=== PATIENT | female | born 1975 | race Caucasian/White ===

== ENCOUNTER 2018-12-18 12:39 | Observation (INO) ==
--- NOTE | 2018-12-18 13:27 | Emergency Department Note ---
Disposition Clinical Impression: Appendicolith Disposition: Admitted As Inpatient Time of Disposition: 15:36 Abdominal Pain HPI - General Chief Complaint: ED Abdominal Pain Stated Complaint: Lower abd pain Time Seen by Provider: 12/18/18 12:45 Source: patient Nursing Notes Reviewed: Yes Vital Signs Reviewed: Yes - History of Present Illness HPI Narrative: Patient is a 43-year-old female with past medical history of tubal ligation, C- section, hypertension, arthritis, GERD presents with 3 weeks of right lower quadrant pain. Patient states this pain is constant 10 out of 10. Nothing makes it better. Movement and touch herniation and defication make it worse. Patient is also been intermittently vomiting for the past 3 weeks. Nonbloody. Patient has not had diarrhea. She says she has felt a little bit lightheaded. Has not lost consciousness. Pain Scale: 10 - Related Data Home Medications Medication Instructions Recorded Confirmed Albuterol Sulfate [Proair HFA] 2 puff IH Q4HR PRN 07/27/15 05/16/18 Aripiprazole [Abilify] 40 mg PO DAILY 07/27/15 05/16/18 Citalopram [CeleXA] 40 mg PO DAILY 07/27/15 05/16/18 Ranitidine HCl [Zantac] 150 mg PO DAILY 07/27/15 05/16/18 Tizanidine [Zanaflex] 4 mg PO BID 07/27/15 05/16/18 Topiramate [Topamax] 100 mg PO TID 07/27/15 05/16/18 lamoTRIgine [Lamictal] 100 mg PO BID 07/27/15 05/16/18 traMADol [Ultram] 50 mg PO TID 07/27/15 05/16/18 Hydrochlorothiazide [Microzide] 12.5 mg PO DAILY 01/21/17 05/16/18 Losartan [Cozaar] 12.5 mg PO DAILY 01/21/17 05/16/18 Previous Rx's Medication Instructions Recorded Cyclobenzaprine [Flexeril] 10 mg PO TID #21 tablet 03/18/18 Allergies Allergy/AdvReac Type Severity Reaction Status Date / Time eletriptan [From Relpax] Allergy Swelling Verified 05/16/18 22:47 of Lip/Tongue/Throat Latex, Natural Rubber Allergy Swelling Verified 05/16/18 22:47 of Lip/Tongue/Throat nalbuphine [From Nubain] Allergy Swelling Verified 05/16/18 22:47 of Lip/Tongue/Throat Penicillins [PCN] Allergy Swelling Verified 05/16/18 22:47 of Lip/Tongue/Throat aspirin AdvReac See Verified 05/16/18 22:47 Comments All systems ED: reviewed and negative except as stated. 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 Psychiatric history: Reports: anxiety, bipolar, depression, other - Social History Smoking status: Current every day smoker Alcohol use: Reports: none Drug use: Reports: none Physical Exam - General Limitations: no limitations General appearance: alert, in no apparent distress - Head Head exam: atraumatic, normocephalic, normal inspection - Eye Eye exam: Present: normal appearance, PERRL, EOMI - ENT ENT exam: normal exam, normal oropharynx, mucous membranes moist - Neck Neck exam: Present: normal inspection, full ROM, trachea midline - Chest Chest inspection: Present: normal inspection, symmetric chest wall rise - Respiratory Respiratory exam: Present: normal lung sounds bilaterally - Cardiovascular Cardiovascular exam: Present: regular rate, normal rhythm, normal heart sounds - Abdominal Exam Abdominal exam: Present: soft, tenderness, guarding, normal bowel sounds. Absent: distention, rebound, rigidity Abdominal tenderness: Present: RLQ, severe - Extremities Exam Extremities exam: Present: normal inspection, full ROM. Absent: tenderness, pedal edema - Neurological Exam Neurological exam: Present: alert, oriented X3 - Psychiatric Psychiatric exam: Present: normal affect, normal mood - Skin Skin exam: Present: warm, dry, intact, normal color Course Vital Signs Temperature 98.1 F 12/18/18 12:39 Pulse Rate 86 12/18/18 12:39 Respiratory Rate 20 12/18/18 12:39 Blood Pressure 155/93 12/18/18 12:39 O2 Sat by Pulse Oximetry 100 12/18/18 12:39 Temperature 98.1 F 12/18/18 12:39 Pulse Rate 62 12/18/18 13:50 Respiratory Rate 16 12/18/18 13:50 Blood Pressure 131/94 12/18/18 13:50 O2 Sat by Pulse Oximetry 99 12/18/18 13:50 Oxygen Delivery Oxygen Delivery Room Air Abdominal Pain - MDM Narrative Medical decision making narrative: Patient has significant right lower quadrant tenderness. Labs and CT abdomen and pelvis was ordered. Appendicitis concern possibly ovarian pathology. Toradol slightly helped the pain. CT found appendicoliths but no acute inflammation. Dr. Gregory in general surgery was called. He will see the patient. Dr. Gregory to perform a diagnostic laparotomy - Lab Data Result diagrams: 12/18/18 13:20 12/18/18 13:20 Lab Results 12/18/18 12/18/18 12/18/18 Range/Units 13:20 13:20 13:27 WBC 6.8 (4.3-11.1) K/mcL RBC 3.99 (3.82-4.97) M/mcL Hgb 12.4 (11.5-15.4) g/dL Hct 36.1 (35.3-44.9) % MCV 90.5 (83.0-100.0) fL MCH 31.1 (28.0-33.3) pg MCHC 34.3 (31.6-35.5) g/dL RDW 12.1 (11.5-14.5) % Plt Count 193 (140-400) K/mcL MPV 11.1 (9.4-12.4) fL Immature Gran % 0.1 (0-4) % Seg Neutrophils % 58.3 % Lymphocytes % 32.6 % Monocytes % 7.2 % Eosinophils % 1.2 % Basophils % 0.6 % Neutrophils # 4.0 (1.6-8.9) K/mcL Lymphocytes # 2.2 (0.6-4.6) K/mcL Monocytes # 0.5 (0.0-1.3) K/mcL Eosinophils # 0.1 (0.0-0.6) K/mcL Basophils # 0.0 (0.0-0.2) K/mcL Sodium 135 L (136-145) mEq/L Potassium 3.4 L (3.5-5.1) mEq/L Chloride 101 (98-107) mEq/L Carbon Dioxide 26 (23-29) mEq/L BUN 7 (6-20) mg/dL Creatinine 0.57 L (0.60-1.20) mg/dL Est GFR ( Amer) > 60 (> 60) Est GFR (Non-Af Amer) > 60 (> 60) BUN/Creatinine Ratio 12 (6-26) Glucose 94 (70-105) mg/dL Calculated Osmolality 278 L (280-300) Calcium 9.6 (8.6-10.3) mg/dL Serum , Qual Negative (Negative)
[2018-12-18] MEDS ORDERED: Ketorolac 30 MG/ML VIAL IM ONE (13:49)
--- NOTE | 2018-12-18 13:50 | Emergency Department Note ---
Disposition Clinical Impression: Appendicolith Disposition: Admitted As Inpatient General Adult HPI - General Chief complaint: ED Abdominal Pain Stated complaint: Lower abd pain Time Seen by Provider: 12/18/18 12:45 Source: patient Limitations: no limitations - History of Present Illness Pain Scale: 10 - Related Data Home Medications Medication Instructions Recorded Confirmed Albuterol Sulfate [Proair HFA] 2 puff IH Q4HR PRN 07/27/15 05/16/18 Aripiprazole [Abilify] 40 mg PO DAILY 07/27/15 05/16/18 Citalopram [CeleXA] 40 mg PO DAILY 07/27/15 05/16/18 Ranitidine HCl [Zantac] 150 mg PO DAILY 07/27/15 05/16/18 Tizanidine [Zanaflex] 4 mg PO BID 07/27/15 05/16/18 Topiramate [Topamax] 100 mg PO TID 07/27/15 05/16/18 lamoTRIgine [Lamictal] 100 mg PO BID 07/27/15 05/16/18 traMADol [Ultram] 50 mg PO TID 07/27/15 05/16/18 Hydrochlorothiazide [Microzide] 12.5 mg PO DAILY 01/21/17 05/16/18 Losartan [Cozaar] 12.5 mg PO DAILY 01/21/17 05/16/18 Previous Rx's Medication Instructions Recorded Cyclobenzaprine [Flexeril] 10 mg PO TID #21 tablet 03/18/18 Allergies Allergy/AdvReac Type Severity Reaction Status Date / Time eletriptan [From Relpax] Allergy Swelling Verified 05/16/18 22:47 of Lip/Tongue/Throat Latex, Natural Rubber Allergy Swelling Verified 05/16/18 22:47 of Lip/Tongue/Throat nalbuphine [From Nubain] Allergy Swelling Verified 05/16/18 22:47 of Lip/Tongue/Throat Penicillins [PCN] Allergy Swelling Verified 05/16/18 22:47 of Lip/Tongue/Throat aspirin AdvReac See Verified 05/16/18 22:47 Comments Constitutional: Denies: fever Eyes: Denies: vision change ENT ED: Denies: congestion Cardiovascular: Denies: chest pain Respiratory: Reports: dyspnea Gastrointestinal: Reports: as per HPI Genitourinary: Reports: as per HPI Musculoskeletal: Denies: myalgia Integumentary: Denies: rash Neurological: Reports: headache Endocrine: Reports: fatigue Past Medical History - Past Medical History Medical history: Reports: arthritis, asthma, GERD, hyperlipidemia, hypertension, migraine, other Surgical history: Reports: , orthopedic, other (Carpal tunnel) Psychiatric history: Reports: anxiety, bipolar, depression, other 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 - Social History Smoking Status: Current every day smoker Smokeless Tobacco Status: No Alcohol use: Reports: none Drug use: Reports: none Physical Exam - General Limitations: no limitations General appearance: alert, in no apparent distress Course Vital Signs Temperature 98.1 F 12/18/18 12:39 Pulse Rate 86 12/18/18 12:39 Respiratory Rate 20 12/18/18 12:39 Blood Pressure 155/93 12/18/18 12:39 O2 Sat by Pulse Oximetry 100 12/18/18 12:39 Temperature 98.1 F 12/18/18 12:39 Pulse Rate 62 12/18/18 13:50 Respiratory Rate 16 12/18/18 13:50 Blood Pressure 131/94 12/18/18 13:50 O2 Sat by Pulse Oximetry 99 12/18/18 13:50 Oxygen Delivery Oxygen Delivery Room Air Medical Decision Making - Lab Data Result diagrams: 12/18/18 13:20 12/18/18 13:20 Lab Results 12/18/18 12/18/18 12/18/18 Range/Units 13:20 13:20 13:27 WBC 6.8 (4.3-11.1) K/mcL RBC 3.99 (3.82-4.97) M/mcL Hgb 12.4 (11.5-15.4) g/dL Hct 36.1 (35.3-44.9) % MCV 90.5 (83.0-100.0) fL MCH 31.1 (28.0-33.3) pg MCHC 34.3 (31.6-35.5) g/dL RDW 12.1 (11.5-14.5) % Plt Count 193 (140-400) K/mcL MPV 11.1 (9.4-12.4) fL Immature Gran % 0.1 (0-4) % Seg Neutrophils % 58.3 % Lymphocytes % 32.6 % Monocytes % 7.2 % Eosinophils % 1.2 % Basophils % 0.6 % Neutrophils # 4.0 (1.6-8.9) K/mcL Lymphocytes # 2.2 (0.6-4.6) K/mcL Monocytes # 0.5 (0.0-1.3) K/mcL Eosinophils # 0.1 (0.0-0.6) K/mcL Basophils # 0.0 (0.0-0.2) K/mcL Sodium 135 L (136-145) mEq/L Potassium 3.4 L (3.5-5.1) mEq/L Chloride 101 (98-107) mEq/L Carbon Dioxide 26 (23-29) mEq/L BUN 7 (6-20) mg/dL Creatinine 0.57 L (0.60-1.20) mg/dL Est GFR ( Amer) > 60 (> 60) Est GFR (Non-Af Amer) > 60 (> 60) BUN/Creatinine Ratio 12 (6-26) Glucose 94 (70-105) mg/dL Calculated Osmolality 278 L (280-300) Calcium 9.6 (8.6-10.3) mg/dL Serum , Qual Negative (Negative) Attestation Statement - Attestation Attestation: I examined this patient and my medical decision-making was reviewed with the Resident Physician. I agree with the documented findings, disposition and treatment plan as described except to the extent set forth below. Patient presents to the ED with a chief complaint of abdominal pain. Right- sided. Patient states that he is from her hip down to her pubic bone. Denies vomiting or diarrhea. On examination she has tenderness over the area. Guarding. Plan. Labs and CT scan. CT scan shows an appendicolith. Patient is having right lower quadrant te nderness. We did call for surgical consult. Dr. Murrieta evaluated the patient at the bedside. Patient will go to the OR for exploratory laparotomy. Abdomen/Pelvis CT 12/18/18 13:20 IMPRESSION: 1. The appendix is not appear inflamed, however 2 small appendicoliths are noted which can predispose to the development of acute appendicitis. 2. No CT evidence of an acute intra-abdominal or intrapelvic process. D/ / Grant Espinal / Grant Espinal Interpreting Provider: Grant Espinal
[2018-12-18 14:02] LABS: Basophils % 0.6 %; Eosinophils # 0.1 K/mcL (0.0-0.6); Eosinophils % 1.2 %; Hematocrit 36.1 % (35.3-44.9); Hemoglobin 12.4 g/dL (11.5-15.4); Immature Granulocytes % 0.1 % (0-4); Lymphocytes # 2.2 K/mcL (0.6-4.6); Lymphocytes % 32.6 %; Mean Corpuscular HGB Conc 34.3 g/dL (31.6-35.5); Mean Corpuscular Hemoglobin 31.1 pg (28.0-33.3); Mean Corpuscular Volume 90.5 fL (83.0-100.0); Mean Platelet Volume 11.1 fL (9.4-12.4); Monocytes # 0.5 K/mcL (0.0-1.3); Monocytes % 7.2 %; Platelet Count 193 K/mcL (140-400); Red Blood Count 3.99 M/mcL (3.82-4.97); Red Cell Distribution Width 12.1 % (11.5-14.5); Segmented Neutrophils % 58.3 %
[2018-12-18 14:30] LABS: BUN/Creatinine Ratio 12 (6-26); Blood Urea Nitrogen 7 mg/dL (6-20); Calcium 9.6 mg/dL (8.6-10.3); Carbon Dioxide 26 mEq/L (23-29); Chloride 101 mEq/L (98-107); Glucose 94 mg/dL (70-105); Osmolality,Calculated 278 (280-300); Potassium 3.4 mEq/L (3.5-5.1); Sodium 135 mEq/L (136-145); eGFR For Non-African Americans > 60 (> 60)
--- NOTE | 2018-12-18 15:51 | General Surg History&Physical ---
Date of Encounter: 12/18/18 Time of Encounter: 15:47 Assessment and Plan (1) Right lower quadrant abdominal pain Current Visit: Yes Status: Acute The assessment and plan as outlined above was discussed with the patient and/or family members who expressed understanding and agreement. All questions were answered. 43F with 3 week history of RLQ pain, CT findings of appendicoliths; discussed with patient that I do not have a definitive diagnosis, but with her pain being present for so long, I do not think it will dissipate on its own. I recommended a diagnostic laparoscopy with appendectomy even though there is a chance that i may not find a definitive reason for her pain. The patient expressed understanding and wished to proceed. NPO IVF one dose of ABX OR today History of Present Illness Chief complaint: right lower quadrant abdominal pain HPI: Ms. Castro is a 43 year old female h/o narcotic drug abuse currently on suboxone, HTN, 6 prior sections and tubal ligation (bilateral) presents with 3 week history of RLQ, worsened over the last week with associated nausea and PO intolerance. The patient is having normal bowel function. The is localized to RLQ with radiation to her pubic region. No associated fevers, chills, chest pain, nor shortness of breath. When talking to the patient she states that the patient is intermittent in nature, but as of late, makes it so she cannot stand up straight because the pain is so great. Her test is negative. A CT scan was obtained, which was reviewed by me, which demonstrates no abnormality, but does show appendicoliths. I suspect that even though there are no signs of inflammation, her pain may be from that. Past Med Surg Social Fam HX - Past Medical History Medical history: arthritis, asthma, GERD, hyperlipidemia, hypertension, migr alisha, other Additional medical history: RA Psychiatric history: anxiety, bipolar, depression, other - Past Surgical History Surgical History: , orthopedic, other (Carpal tunnel) Additional surgical history: CARPAL TUNEL RELEASE, TUBAL LIGATION. D&C, right knee, tubes in ear - Social History Smoking Status: Current every day smoker Smokeless Tobacco Status: No Alcohol use: none Drug use: none - Additional Family History Additional family history: non contributory Medications and Allergies Albuterol Sulfate [Proair HFA] 2 puff IH Q4HR PRN 07/27/15 [History] Aripiprazole [Abilify] 40 mg PO DAILY 07/27/15 [History] Citalopram [CeleXA] 40 mg PO DAILY 07/27/15 [History] Ranitidine HCl [Zantac] 150 mg PO DAILY 07/27/15 [History] Tizanidine [Zanaflex] 4 mg PO BID 07/27/15 [History] Topiramate [Topamax] 100 mg PO TID 07/27/15 [History] lamoTRIgine [Lamictal] 100 mg PO BID 07/27/15 [History] traMADol [Ultram] 50 mg PO TID 07/27/15 [History] Hydrochlorothiazide [Microzide] 12.5 mg PO DAILY 01/21/17 [History] Losartan [Cozaar] 12.5 mg PO DAILY 01/21/17 [History] Cyclobenzaprine [Flexeril] 10 mg PO TID #21 tablet 03/18/18 [Rx] Allergy/AdvReac Type Severity Reaction Status Date / Time eletriptan [From Relpax] Allergy Swelling Verified 05/16/18 22:47 of Lip/Tongue/Throat Latex, Natural Rubber Allergy Swelling Verified 05/16/18 22:47 of Lip/Tongue/Throat nalbuphine [From Nubain] Allergy Swelling Verified 05/16/18 22:47 of Lip/Tongue/Throat Penicillins [PCN] Allergy Swelling Verified 05/16/18 22:47 of Lip/Tongue/Throat aspirin AdvReac See Verified 05/16/18 22:47 Comments Review of Systems All systems PM: 12 point ROS negative besides HPI findings General Surgery Exam Initial Vital Signs Temp Pulse Resp BP Pulse Ox 98.1 F 86 20 155/93 100 12/18/18 12:39 12/18/18 12:39 12/18/18 12:39 12/18/18 12:39 12/18/18 12:39 - General physical appearance no distress - Eyes normal ocular movement - ENT normocephalic - Neck trachea midline, no lymphadectomy - Respiratory normal expansion, normal respiratory effort - Cardiovascular Cardiovascular exam: Present: RRR - Abdomen Abdomen general surgery: Present: soft, tender Abdominal Tenderness: Present: RLQ - Integumentary Integumentary general surgery: Present: warm and dry - Neurologic Present: CN 2-12 grossly intact - Musculoskeletal Present: other (limping, favoring her right side) - Psychiatric Psychiatric general surgery: Present: A&Ox3 Results - Labs 12/18/18 13:20 12/18/18 13:20 Abnormal lab results Sodium 135 mEq/L (136-145) L 12/18/18 13:20 Potassium 3.4 mEq/L (3.5-5.1) L 12/18/18 13:20 Creatinine 0.57 mg/dL (0.60-1.20) L 12/18/18 13:20 Calculated Osmolality 278 (280-300) L 12/18/18 13:20 Diabetes panel 12/18/18 Range/Units 13:20 Sodium 135 L (136-145) mEq/L Potassium 3.4 L (3.5-5.1) mEq/L Chloride 101 (98-107) mEq/L Carbon Dioxide 26 (23-29) mEq/L BUN 7 (6-20) mg/dL Creatinine 0.57 L (0.60-1.20) mg/dL Glucose 94 (70-105) mg/dL Calcium 9.6 (8.6-10.3) mg/dL Calcium panel 12/18/18 Range/Units 13:20 Calcium 9.6 (8.6-10.3) mg/dL Pituitary panel 12/18/18 Range/Units 13:20 Sodium 135 L (136-145) mEq/L Potassium 3.4 L (3.5-5.1) mEq/L Chloride 101 (98-107) mEq/L Carbon Dioxide 26 (23-29) mEq/L BUN 7 (6-20) mg/dL Creatinine 0.57 L (0.60-1.20) mg/dL Glucose 94 (70-105) mg/dL Calcium 9.6 (8.6-10.3) mg/dL Adrenal panel 12/18/18 Range/Units 13:20 Sodium 135 L (136-145) mEq/L Potassium 3.4 L (3.5-5.1) mEq/L Chloride 101 (98-107) mEq/L Carbon Dioxide 26 (23-29) mEq/L BUN 7 (6-20) mg/dL Creatinine 0.57 L (0.60-1.20) mg/dL Glucose 94 (70-105) mg/dL Calcium 9.6 (8.6-10.3) mg/dL All other labs normal. - Imaging CT scan - abdomen: report reviewed, image reviewed CT scan - pelvis: report reviewed, image reviewed
--- NOTE | 2018-12-18 16:30 | Anesthesia Evaluation PreOp ---
Date of Encounter: 12/18/18 Time of Encounter: 16:26 - Past History Planned Operation: Lap Appy Cardiac History: HTN, Hyperlipidemia Pulmonary History: Smoker, Asthma MDM SR History: Other (Anxiety/Depression, BiPolar d/o) Other Medical History: GERD Anesthesia History: No Prior Anesthetic Complications, Past Anesthesia (C- sections x 6, BTL, CTR, Knee surgery 12/2017) Alcohol Use: none Drug use: none, IV Drug Use, prescription drug abuse (Currently on Suboxone), other (last SUBOXONE today @ 0730) Medications and Allergies Albuterol Sulfate [Proair HFA] 2 puff IH Q4HR PRN 07/27/15 [History] Aripiprazole [Abilify] 40 mg PO DAILY 07/27/15 [History] Citalopram [CeleXA] 40 mg PO DAILY 07/27/15 [History] Ranitidine HCl [Zantac] 150 mg PO DAILY 07/27/15 [History] Tizanidine [Zanaflex] 4 mg PO BID 07/27/15 [History] Topiramate [Topamax] 100 mg PO TID 07/27/15 [History] lamoTRIgine [Lamictal] 100 mg PO BID 07/27/15 [History] traMADol [Ultram] 50 mg PO TID 07/27/15 [History] Hydrochlorothiazide [Microzide] 12.5 mg PO DAILY 01/21/17 [History] Losartan [Cozaar] 12.5 mg PO DAILY 01/21/17 [History] Cyclobenzaprine [Flexeril] 10 mg PO TID #21 tablet 03/18/18 [Rx] Allergy/AdvReac Type Severity Reaction Status Date / Time eletriptan [From Relpax] Allergy Swelling Verified 05/16/18 22:47 of Lip/Tongue/Throat Latex, Natural Rubber Allergy Swelling Verified 05/16/18 22:47 of Lip/Tongue/Throat nalbuphine [From Nubain] Allergy Swelling Verified 05/16/18 22:47 of Lip/Tongue/Throat Penicillins [PCN] Allergy Swelling Verified 05/16/18 22:47 of Lip/Tongue/Throat aspirin AdvReac See Verified 05/16/18 22:47 Comments - Meds/Allergy Pre-op Review Medications Reviewed: Yes Allergies Reviewed: Yes Beta Blockers on Current Med List: No Anesthesia Results - Labs 12/18/18 13:20 12/18/18 13:20 Laboratory Results Impressions Abdomen/Pelvis CT 12/18/18 13:20 IMPRESSION: 1. The appendix is not appear inflamed, however 2 small appendicoliths are noted which can predispose to the development of acute appendicitis. 2. No CT evidence of an acute intra-abdominal or intrapelvic process. D/ / Grant Espinal / Grant Espinal Interpreting Provider: Grant Espinal Laboratory Tests 12/18/18 13:27 Serum , Qual Negative Anesthesia Exam Vital Signs Temp Pulse Resp BP Pulse Ox 12/18/18 16:26 16 127/81 12/18/18 13:50 62 16 131/94 99 12/18/18 12:39 98.1 F 86 20 155/93 100 Intake and Output 12/18/18 12/18/18 12/18/18 07:59 15:59 23:59 Other: Stool Characteristics Normal for Patient Weight 62.777 kg Patient Weight 12/18/18 23:59 Weight 62.777 kg Height: 5'1" Weight: 138# BMI = 26 NPO (# of Hours): 0700 Coffee 1000 sips Gatorade Pain Scale Used: Numeric (1 - 10) - HEENT Pupil (Motor): Pupils equal, EOMI Mallampati: II Teeth: Normal Oral Opening: Greater than 3 - MDM SR LOC: Oriented MDM SR Motor: Normal RUE, Normal LUE, Normal RLE, Normal LLE, Normal Face MDM SR Sensory: Normal: RUE, LUE, RLE, LLE, Face - Cardiac Rhythm: Regular Murmur: None - Pulmonary Breath Sounds: bilateral Clear Respiratory Effort: Symmetrical Anesthesia Assess/Plan ASA Score: 3 (Smoker, IVDA) Anesthetic Plan: General Monitoring Plan: Standard Monitors Recovery Plan: PACU Anes Supervising Prov Stmt: Pt seen/evaluated, R&B Discussed, questions answered and consent obtained. Kai Patino MD
[2018-12-18] MEDS ORDERED: *HR* Rocuronium Bromide 50 MG/5 ML VIAL ONE (16:43)
[2018-12-18] MEDS ORDERED: Lidocaine -MPF 4% 5 ML AMPUL ONE (16:43)
[2018-12-18] MEDS ORDERED: Lidocaine -MPF 2% 2 ML VIAL ONE (16:43)
[2018-12-18] MEDS ORDERED: *HR* Succinylcholine 200 MG/10 ML VIAL IVP ONE (16:43)
[2018-12-18] MEDS ORDERED: *HR* FentaNYL (PF) 100 MCG/2 ML VIAL ONE ×2 (16:44→18:06)
[2018-12-18] MEDS ORDERED: *HR* Propofol 200 MG/20 ML VIAL IVP ONE (16:44)
[2018-12-18] MEDS ORDERED: *HR* Midazolam HCl 2 MG/2 ML VIAL ONE (16:44)
[2018-12-18] MEDS ORDERED: Ondansetron 4 MG/2 ML VIAL ONE (16:46)
[2018-12-18] MEDS ORDERED: Dexamethasone 4 MG/ML VIAL ONE (16:46)
[2018-12-18] MEDS ORDERED: Clindamycin 600 MG/50 ML 600 MG/50 ML IV.SOLN IVPB ONE (16:46)
[2018-12-18 16:49] LABS: Bilirubin,Urine Negative (Negative); Blood,Urine Negative (Negative); Clarity,Urine Clear (Clear); Color,Urine Yellow (Yellow); Glucose,Urine (UA) Normal (Normal); Ketones,Urine Negative (Negative); Leukocyte Esterase,Urine Negative (Negative); Nitrite,Urine Negative (Negative); Protein,Urine Negative (Neg-Trace); Specific Gravity,Urine 1.014 (1.010-1.025); Urobilinogen,Urine Normal (Normal)
[2018-12-18] MEDS ORDERED: KETAMINE HCL 50 MG/ML SYRINGE IV ONE (16:53)
[2018-12-18] MEDS ORDERED: Acetaminophen IV 1,000 MG/100 ML INFUS..BTL ONE (16:54)
[2018-12-18] MEDS ORDERED: Pregabalin 75 MG CAPSULE ONE (16:55)
[2018-12-18] MEDS ORDERED: Famotidine 20 MG/2 ML VIAL ONE (16:59)
[2018-12-18] MEDS ORDERED: Clindamycin 600 MG/50 ML 600 MG/50 ML IV.SOLN IVPB STA (17:07)
[2018-12-18] MEDS ORDERED: Neostigmine Methylsulfate 3 MG/3 ML SYRINGE ONE (17:51)
--- NOTE | 2018-12-18 19:07 | Anesthesia Evaluation Post Op ---
Date of Encounter: 12/18/18 Time of Encounter: 19:07 - Vital Signs Vital Signs: Vital Signs/O2 Sat, Most Current Temp Pulse Resp BP Pulse Ox 98.9 F 49 18 137/88 98 12/18/18 18:52 12/18/18 18:52 12/18/18 18:52 12/18/18 18:52 12/18/18 18:52 - Lungs Lungs: Clear Ascult./Percussion - Airway Airway: Non-obstructed - Cardiovascular Regular Rate - Mental Status Mental Status: Alert & Oriented, Answers Appropriately - Pain Pain Scale: 0 Pain Scale used: Numeric (1 - 10) - Nausea Vomiting Nausea Vomiting: Not Present - Hydration Hydration: Ice chips, Has not voided - Discharge PostOp Status: Transfer Patient to floor
[2018-12-18] MEDS ORDERED: Ibuprofen 400 MG TABLET PO PRN (19:16)
[2018-12-18] MEDS ORDERED: Naloxone 0.4 MG/ML INJ IVP PRN (19:16)
[2018-12-18] MEDS ORDERED: Acetaminophen 325 MG TABLET PO PRN (19:16)
[2018-12-18] MEDS ORDERED: D5% in 0.45% NACL 1,000 ML IVC SCH (19:16)
[2018-12-18] MEDS: traMADol 50 MG TABLET PO SCH (20:55)
[2018-12-18] MEDS: lamoTRIgine 100 MG TABLET PO SCH (20:55)
[2018-12-18] MEDS ORDERED: tiZANidine 4 MG TABLET PO SCH (21:00)
[2018-12-18] MEDS ORDERED: Topiramate 100 MG TABLET PO SCH (21:00)
--- NOTE | 2018-12-18 23:36 | Operative Note ---
Date of procedure: 12/18/18 Pre-op diagnosis: abdominal pain Post-op diagnosis: other (cystic right ovary) Procedure: diagnostic laparoscopy laparoscopic appendectomy Implants: none Complications: none Anesthesia: GETA Local Anesthetics: 0.5% Sensorcaine HCL SubQ (cc) Surgeon: Zach Gregory Was there an ict sales assistant present: Yes Intellectual Property Paralegal: Idalia Rowley Estimated blood loss (cc): 2 Specimen: appendix Condition: stable Disposition: PACU Procedure in Detail: The patient was brought into the operating room suite. The patient was placed in the supine position. Mechanical DVT prophylaxis was initiated. The patient underwent smooth induction of general endotracheal anesthesia. The patient was prepped and draped in the usual fashion. Preoperative antibiotics were given. A timeout was held identifying the correct patient, pathology, and procedure. Everyone was in agreement and we began a procedure. Incision to Mesenteric Window I started by creating a supraumbilical incision and via open Mccoy technique entered into the abdomen. I then used a Vicryl suture on a UR 6 needle in a [id number] fashion to reapproximate but not close the fascia. I then inserted the 10 trocar followed by the camera to visualize the intraabdominal cavity. I then created a 5 mm incision suprapubically and inserted the 5 mm trocar under direct visualization. Roughly 1 handbreadth lateral to the umbilical incision I created another 5 mm incision and inserted another 5 mm trocar under direct visualization. I then inserted the nontraumatic instruments into the 5 mm ports and began the procedure. I started by exploring the abdominal and pelvic cavity. I noted that the right ovary appeared enlarged and cystic. The left was also cystic but not as enlarged and appeared more normal than the right. I also noted that the uterus was facing downward into the pelvis. I reduced it, but it quickly resumed its originanl position I then ran the bowel beginning at the cecum and proximal for about 24 inches. No abnormalities were noted. I was able to identify the tinea coli coalescing at the base of the cecum to identify the appendix. Using the nontraumatic grasper I was able to grasp the appendix and then using the [place] dissector was able to create a mesenteric window. Mesenteric Window to Appendectomy I then inserted the nontraumatic grasper into the same mesenteric window to widen it. I then grasped the appendix and switched from the 10 mm camera to the 5 mm camera so that we can insert the stapler through the umbilical port. The teeth of the stapler through the mesenteric window. It should be stated that the stapler was a 45 mm bowel load stapler. It was positioned at the base of the appendix and I was able to confirm under direct visualization that the teeth contained no other structures such as the cecum. I then fired the stapler and resected the appendix from the base of the cecum. I then loaded up a vascular load stapler and then in the similar fashion did fire across the mesentery. Retrieval to Closure I then inserted the Endo Catch bag to retrieve the specimen which was intact upon retrieval. I then switched back to the 10 mm camera and inserted the nontraumatic grasper as well as a suction-wrapper dipper into the 5 mm ports. And under direct visualization I was able to appreciate the staple line of the mesoappendix as well as the staple line of the base of the cecum. There was no obvious leaking nor bleeding. The pelvis did not have any collection of fluid. I then concluded the procedure, turned off the insufflation, removed the trochars under direct visualization, and then closed the umbilical fascia using the Vicryl suture that was placed at the beginning. I then closed all incisions with interrupted 4-0 Monocryl. And then sealed with Dermabon. It should be stated that I did use 0.5% Marcaine as a local anesthetic. The patient tolerated the procedure well and did go back to PACU in stable condition.
[2018-12-19] MEDS ORDERED: Famotidine 20 MG TABLET PO SCH (07:30)
[2018-12-19] MEDS ORDERED: hydroCHLOROthiazide 25 MG TABLET PO SCH (09:00)
[2018-12-19] MEDS ORDERED: ARIPiprazole 10 MG TABLET PO SCH (09:00)
[2018-12-19] MEDS: lamoTRIgine 100 MG TABLET PO SCH (09:11)
[2018-12-19] MEDS: traMADol 50 MG TABLET PO SCH (09:13)
--- NOTE | 2018-12-19 09:55 | General Surgery Progress Note ---
Date of Encounter: 12/19/18 Time of Encounter: 09:54 - Assessment and Plan (1) Right lower quadrant abdominal pain Current Visit: Yes Status: Acute 43F POD #1 s/p diagnostic lap, lap appy; diet as tolerated SLIV tylenol and ibuprofen only for pain control no abx plan for d/c; f/u with me in 2 weeks will need raveler referral via pcp Subjective Patient reports: no new complaints, feels better, still having pain, pain is less, afebrile Objective Vital Signs - Last 8 Hours Temp Pulse Resp BP Pulse Ox 12/19/18 07:02 98.4 F 63 14 106/61 95 12/19/18 05:20 98.3 F 62 18 134/80 96 Intake and Output 12/18/18 12/19/18 12/19/18 23:59 07:59 15:59 Intake Total 50 / 50 120 / 120 Output Total 2 / 2 500 / 500 400 / 400 Balance 48 / 48 -500 / -500 -280 / -280 Intake: IV Fluids 50 / 50 Cleocin Premix 600 MG/50 ML 600 50 / 50 mg In 50 ml @ 50 mls/hr IVPB NOW STA Rx#:[id number] Oral 120 / 120 Output: Urine 0 / 0 500 / 500 400 / 400 Estimated Blood Loss 2 / 2 Other: Meal Breakfast Percent of Meal Consumed 50% - General physical appearance no distress - Respiratory normal expansion, normal respiratory effort - Cardiovascular Cardiovascular exam: Present: RRR - Abdomen Abdomen: Present: soft, tender (appropriatelyt jannette) - Incision Incision: Present: clean and dry, intact - Integumentary no rash - Neurologic CN 2-12 grossly intact - Musculoskeletal normal posture - Psychiatric oriented to time, oriented to person, oriented to place - Labs 12/18/18 13:20 12/18/18 13:20 Diabetes panel 12/18/18 Range/Units 13:20 Sodium 135 L (136-145) mEq/L Potassium 3.4 L (3.5-5.1) mEq/L Chloride 101 (98-107) mEq/L Carbon Dioxide 26 (23-29) mEq/L BUN 7 (6-20) mg/dL Creatinine 0.57 L (0.60-1.20) mg/dL Glucose 94 (70-105) mg/dL Calcium 9.6 (8.6-10.3) mg/dL Calcium panel 12/18/18 Range/Units 13:20 Calcium 9.6 (8.6-10.3) mg/dL Pituitary panel 12/18/18 Range/Units 13:20 Sodium 135 L (136-145) mEq/L Potassium 3.4 L (3.5-5.1) mEq/L Chloride 101 (98-107) mEq/L Carbon Dioxide 26 (23-29) mEq/L BUN 7 (6-20) mg/dL Creatinine 0.57 L (0.60-1.20) mg/dL Glucose 94 (70-105) mg/dL Calcium 9.6 (8.6-10.3) mg/dL Adrenal panel 12/18/18 Range/Units 13:20 Sodium 135 L (136-145) mEq/L Potassium 3.4 L (3.5-5.1) mEq/L Chloride 101 (98-107) mEq/L Carbon Dioxide 26 (23-29) mEq/L BUN 7 (6-20) mg/dL Creatinine 0.57 L (0.60-1.20) mg/dL Glucose 94 (70-105) mg/dL Calcium 9.6 (8.6-10.3) mg/dL Consult Discharge Plan - Plan Referrals: Italia Oconnor CNP [Primary Care Provider] -
[2018-12-19 10:17] VITALS: BP 144/76
--- NOTE | 2018-12-19 11:48 | Discharge Summary ---
<Kinza Ivey - Last Filed: 12/19/18 11:50> Orders not resulted at time of discharge: Pending orders 12/18/18 17:59 Surgical Pathology [PTH] Routine Date of Encounter: 12/19/18 Time of Encounter: 11:50 - Discharge Diagnosis (1) Appendicolith Priority: Primary Status: Acute General Surgery Exam Initial Vital Signs Temp Pulse Resp BP Pulse Ox 98.1 F 86 20 155/93 100 12/18/18 12:39 12/18/18 12:39 12/18/18 12:39 12/18/18 12:39 12/18/18 12:39 - Hospital Course Hospital course: Ms. Castro is a 43 year old female who presented on 12/18/2018 with complaints of right lower quadrant pain and underwent a diagnostic laparoscopy, laparoscopic appendectomy. Her hospital course has been uncomplicated. She requests no narcotics given her home Suboxone use. She is ambulating avoiding without difficulty, tolerating a diet without nausea or vomiting, vital signs are stable, and she is afebrile. We will discharge with ibuprofen and Tylenol. - Time Spent with Patient Total time spent providing and/or coordinating discharge services: - Discharge Medications Prescriptions: Docusate Sodium [Colace] 100 mg PO BID PRN #30 capsule PRN Reason: Contstipation RX: Ibuprofen 800 mg PO Q8H PRN #30 tablet PRN Reason: Postsurgical pain Home Medications: RX: Albuterol Sulfate [Albuterol Inhaler] 2 puff IH Q4HR PRN 07/27/15 [History] RX: Aripiprazole [Abilify] 40 mg PO DAILY 07/27/15 [History] RX: Citalopram [CeleXA] 40 mg PO DAILY 07/27/15 [History] RX: Ranitidine HCl [Zantac] 150 mg PO BID 07/27/15 [History] RX: Tizanidine [Zanaflex] 4 mg PO TID 07/27/15 [History] RX: Topiramate [Topamax] 100 mg PO TID 07/27/15 [History] RX: lamoTRIgine [Lamictal] 100 mg PO BID 07/27/15 [History] RX: traMADol [Ultram] 50 mg PO TID 07/27/15 [History] RX: Hydrochlorothiazide [Microzide] 25 mg PO DAILY 01/21/17 [History] RX: Losartan [Cozaar] 12.5 mg PO BID 01/21/17 [History] RX: Cyclobenzaprine [Flexeril] 10 mg PO TID #21 tablet 03/18/18 [Rx] Docusate Sodium [Colace] 100 mg PO BID PRN #30 capsule 12/19/18 [Rx] RX: Ibuprofen 800 mg PO Q8H PRN #30 tablet 12/19/18 [Rx] Simvastatin 12/19/18 [History] Allergies/Adverse Reactions: Allergy/AdvReac Type Severity Reaction Status Date / Time eletriptan [From Relpax] Allergy Swelling Verified 05/16/18 22:47 of Lip/Tongue/Throat Latex, Natural Rubber Allergy Swelling Verified 05/16/18 22:47 of Lip/Tongue/Throat nalbuphine [From Nubain] Allergy Swelling Verified 05/16/18 22:47 of Lip/Tongue/Throat Penicillins [PCN] Allergy Swelling Verified 05/16/18 22:47 of Lip/Tongue/Throat aspirin AdvReac See Verified 05/16/18 22:47 Comments Date of admission: 12/18/18 16:01 Primary care physician: Italia Oconnor Discharging clinician: Zach Gregory Anticipated date of discharge: 12/19/18 Labs on day of discharge: Labs from last 24 hours 12/18/18 12/18/18 12/18/18 13:27 13:20 13:20 WBC 6.8 RBC 3.99 Hgb 12.4 Hct 36.1 MCV 90.5 MCH 31.1 MCHC 34.3 RDW 12.1 Plt Count 193 MPV 11.1 Immature Gran % 0.1 Seg Neutrophils % 58.3 Lymphocytes % 32.6 Monocytes % 7.2 Eosinophils % 1.2 Basophils % 0.6 Neutrophils # 4.0 Lymphocytes # 2.2 Monocytes # 0.5 Eosinophils # 0.1 Basophils # 0.0 Sodium 135 L Potassium 3.4 L Chloride 101 Carbon Dioxide 26 BUN 7 Creatinine 0.57 L Est GFR ( Amer) > 60 Est GFR (Non-Af Amer) > 60 BUN/Creatinine Ratio 12 Glucose 94 Calculated Osmolality 278 L Calcium 9.6 Serum , Qual Negative Urine Color Urine Clarity Urine pH Ur Specific Ceres Urine Protein Urine Glucose (UA) Urine Ketones Urine Blood Urine Nitrite Urine Bilirubin Urine Urobilinogen Ur Leukocyte Esterase Ur Culture Indicated? 12/18/18 12:50 WBC RBC Hgb Hct MCV MCH MCHC RDW Plt Count MPV Immature Gran % Seg Neutrophils % Lymphocytes % Monocytes % Eosinophils % Basophils % Neutrophils # Lymphocytes # Monocytes # Eosinophils # Basophils # Sodium Potassium Chloride Carbon Dioxide BUN Creatinine Est GFR ( Amer) Est GFR (Non-Af Amer) BUN/Creatinine Ratio Glucose Calculated Osmolality Calcium Serum , Qual Urine Color Yellow Urine Clarity Clear Urine pH 6.0 Ur Specific Ceres 1.014 Urine Protein Negative Urine Glucose (UA) Normal Urine Ketones Negative Urine Blood Negative Urine Nitrite Negative Urine Bilirubin Negative Urine Urobilinogen Normal Ur Leukocyte Esterase Negative Ur Culture Indicated? NO - Impressions ITS Impressions Abdomen/Pelvis CT 12/18/18 13:20 IMPRESSION: 1. The appendix is not appear inflamed, however 2 small appendicoliths are noted which can predispose to the development of acute appendicitis. 2. No CT evidence of an acute intra-abdominal or intrapelvic process. D/ / Grant Espinal / Grant Espinal Interpreting Provider: Grant Espinal - Patient Status Disposition: Home, Self-Care Condition: Good Functional capacity at discharge: independent ambulation Overall status at discharge: patient is progressing back to baseline - Discharge Instructions Instructions: Ibuprofen (By mouth), Laxative, Stool Softeners (By mouth), Laparoscopic Appendectomy (DC) Follow Up With: Zach Gregory MD [Non-Partnered Physician] - 01/06/19 9:00 am Italia Oconnor CNP [Primary Care Provider] - (Keep your appt that you stated you already had. ) Additional Instructions: General Surgical Discharge Instructions 1. No pushing, pulling, or lifting greater than 15 lbs for 2-4 weeks (depending upon procedure). 2. You may shower beginning today, but no tub baths, soaking, or swimming for 2 weeks. 3. You may resume driving when you are off narcotics and are safe to react in a car. 4. Take ibuprofen every 8 hours for discomfort. You may take your daily schedule dose of Suboxone. 5. Take stool softeners (Colace) or a water based laxative (Miralax) while taking narcotics. You may hold for loose stools. 6. Report any fevers greater than 100.5F, increase abdominal discomfort, drainage that looks like pus, increased redness or pain at the surgical site, or any vomiting. 7. Report any pain in the calves, shortness of breath, or rapid heartbeat. 8. Follow-up in the office as directed. 9. If you were prescribed antibiotics, do not stop them without talking to your provider. - Diet and Activity Activity: increase activity as tolerated Diet: advance to your usual diet <Zach Gregory - Last Filed: 12/19/18 12:47> Orders not resulted at time of discharge: Pending orders 12/18/18 17:59 Surgical Pathology [PTH] Routine Date of Encounter: 12/19/18 - Discharge Diagnosis (1) Right lower quadrant abdominal pain Status: Acute General Surgery Exam Initial Vital Signs Temp Pulse Resp BP Pulse Ox 98.1 F 86 20 155/93 100 12/18/18 12:39 12/18/18 12:39 12/18/18 12:39 12/18/18 12:39 12/18/18 12:39 - Hospital Course Hospital course: Ms. Castro is a 43 year old female - Time Spent with Patient Total time spent providing and/or coordinating discharge services: Date of admission: 12/18/18 16:01 Primary care physician: Italia Oconnor Labs on day of discharge: Labs from last 24 hours 12/18/18 12/18/18 12/18/18 13:27 13:20 13:20 WBC 6.8 RBC 3.99 Hgb 12.4 Hct 36.1 MCV 90.5 MCH 31.1 MCHC 34.3 RDW 12.1 Plt Count 193 MPV 11.1 Immature Gran % 0.1 Seg Neutrophils % 58.3 Lymphocytes % 32.6 Monocytes % 7.2 Eosinophils % 1.2 Basophils % 0.6 Neutrophils # 4.0 Lymphocytes # 2.2 Monocytes # 0.5 Eosinophils # 0.1 Basophils # 0.0 Sodium 135 L Potassium 3.4 L Chloride 101 Carbon Dioxide 26 BUN 7 Creatinine 0.57 L Est GFR ( Amer) > 60 Est GFR (Non-Af Amer) > 60 BUN/Creatinine Ratio 12 Glucose 94 Calculated Osmolality 278 L Calcium 9.6 Serum , Qual Negative Urine Color Urine Clarity Urine pH Ur Specific Ceres Urine Protein Urine Glucose (UA) Urine Ketones Urine Blood Urine Nitrite Urine Bilirubin Urine Urobilinogen Ur Leukocyte Esterase Ur Culture Indicated? 12/18/18 12:50 WBC RBC Hgb Hct MCV MCH MCHC RDW Plt Count MPV Immature Gran % Seg Neutrophils % Lymphocytes % Monocytes % Eosinophils % Basophils % Neutrophils # Lymphocytes # Monocytes # Eosinophils # Basophils # Sodium Potassium Chloride Carbon Dioxide BUN Creatinine Est GFR ( Amer) Est GFR (Non-Af Amer) BUN/Creatinine Ratio Glucose Calculated Osmolality Calcium Serum , Qual Urine Color Yellow Urine Clarity Clear Urine pH 6.0 Ur Specific Ceres 1.014 Urine Protein Negative Urine Glucose (UA) Normal Urine Ketones Negative Urine Blood Negative Urine Nitrite Negative Urine Bilirubin Negative Urine Urobilinogen Normal Ur Leukocyte Esterase Negative Ur Culture Indicated? NO - Impressions ITS Impressions Abdomen/Pelvis CT 12/18/18 13:20 IMPRESSION: 1. The appendix is not appear inflamed, however 2 small appendicoliths are noted which can predispose to the development of acute appendicitis. 2. No CT evidence of an acute intra-abdominal or intrapelvic process. D/ / Grant Espinal / Grant Espinal Interpreting Provider: Grant Espinal - Attending Attestation I have personally seen and examined the patient. I have reviewed pertinent labs, imaging, progress notes, including this one. I have discussed the plan in thorough detail with the resident and nurse practitioner. I agree with the above assessment and plan.
== END 2018-12-19 14:27 | disposition home or self-care (01) ==
LOC: 3ANU 12:39 → EMEROOARM 12:39 → 3ANU 16:27
PROVIDERS: ADMIT Surgery; ATTEND Surgery

== ENCOUNTER 2019-05-08 06:08 | Inpatient (IN) ==
[2019-05-08] MEDS ORDERED: Albuterol 2.5 MG/3 ML NEBULIZER IH ONE (06:23)
[2019-05-08] MEDS ORDERED: Clindamycin 900 MG/50 ML 900 MG/50 ML IV.SOLN IVPB ONE (06:23)
[2019-05-08] MEDS ORDERED: Ringers Solution, Lactated 1,000 ML IVC SCH ×2 (06:30→11:26)
[2019-05-08] MEDS ORDERED: *HR* HYDROmorphone 2 MG TABLET PO PRN (07:11)
[2019-05-08] MEDS ORDERED: *HR* Labetalol 20 MG/4 ML SYRINGE IVP PRN (07:11)
[2019-05-08] MEDS ORDERED: *HR* HYDROmorphone (PF) 1 MG/ML SYRINGE IVP PRN (07:11)
[2019-05-08] MEDS ORDERED: Famotidine 20 MG/2 ML VIAL IVP ONE (07:11)
[2019-05-08] MEDS ORDERED: *HR* Promethazine 25 MG/ML VIAL IVP PRN (07:11)
[2019-05-08] MEDS ORDERED: *HR* OxyCODONE Immed Rel 5 MG TABLET PO PRN (07:11)
[2019-05-08] MEDS ORDERED: Scopolamine Patch 1.5 MG PATCH.TD72 TD ONE (07:11)
[2019-05-08] MEDS ORDERED: *HR* Rocuronium Bromide 50 MG/5 ML VIAL ONE (07:13)
[2019-05-08] MEDS ORDERED: *HR* FentaNYL (PF) 100 MCG/2 ML VIAL ONE (07:13)
[2019-05-08] MEDS ORDERED: Ondansetron 4 MG/2 ML VIAL ONE (07:13)
[2019-05-08] MEDS ORDERED: *HR* Propofol 200 MG/20 ML VIAL IVP ONE (07:13)
[2019-05-08] MEDS ORDERED: Lidocaine -MPF 2% 2 ML VIAL ONE (07:13)
[2019-05-08] MEDS ORDERED: Dexamethasone 4 MG/ML VIAL ONE (07:13)
[2019-05-08] MEDS ORDERED: *HR* Midazolam HCl 5 MG/5 ML VIAL IVP ONE (07:13)
[2019-05-08] MEDS ORDERED: Acetaminophen IV 1,000 MG/100 ML INFUS..BTL IVPB ONE (07:14)
[2019-05-08] MEDS ORDERED: Pregabalin 75 MG CAPSULE PO ONE (07:14)
--- NOTE | 2019-05-08 07:19 | Anesthesia Evaluation PreOp ---
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 History: Other (Anxiety/Depression/BiPolar) Other Medical History: Diabetes Type II ("Pre-Diabetic"), GERD Anesthesia History: No Prior Anesthetic Complications, Past Anesthesia (C- section x 6, appy, KNee surgery, cTR, Dx Lap) Alcohol Use: none Drug use: none, IV Drug Use, prescription drug abuse (last Suboxone), other Medications and Allergies Acetaminophen/Butalbital/Caffe [Fioricet] 1 tab PO Q4H PRN 03/13/19 [History] Buprenorphine HCl/Naloxone HCl [Buprenorphin-Naloxon 8-2 mg Sl] 2 tab SL DAILY 03/13/19 [History] Losartan Potassium [Cozaar] 50 mg PO DAILY 03/13/19 [History] Meclizine HCl [Verticalm] 25 mg PO DAILY PRN 03/13/19 [History] Nabumetone [Relafen] 500 mg PO BID 03/13/19 [History] hydroCHLOROthiazide [Hydrochlorothiazide] 25 mg PO DAILY 03/13/19 [History] raNITIdine HCl [Zantac] 150 mg PO DAILY 03/13/19 [History] Allergy/AdvReac Type Severity Reaction Status Date / Time eletriptan [From Relpax] Allergy Difficulty Verified 05/08/19 07:29 Breathing Latex, Natural Rubber Allergy Swelling Verified 05/08/19 07:29 of Lip/Tongue/Throat Pierce Allergy EPS Verified 05/08/19 07:29 moxifloxacin Allergy Hives, Verified 05/08/19 07:29 Swelling, SOB nalbuphine [From Nubain] Allergy Swelling Verified 05/08/19 07:29 of Lip/Tongue/Throat Penicillins [PCN] Allergy Blister, Verified 05/08/19 07:29 Cough, SOB, Bleeding aspirin AdvReac See Verified 05/08/19 07:29 Comments - Meds/Allergy Pre-op Review Medications Reviewed: Yes Allergies Reviewed: Yes Beta Blockers on Current Med List: No Anesthesia Results - Labs Laboratory Tests 02/10/19 03/07/19 05/01/19 22:09 11:15 11:20 WBC 4.7 Hgb 12.6 Hct 37.2 Plt Count 204 Sodium 137 Potassium 3.0 L Chloride 103 Carbon Dioxide 26 BUN 12 Creatinine 0.60 Est GFR (Non-Af Amer) > 60 Glucose 126 H Serum , Qual 05/01/19 11:20 WBC Hgb Hct Plt Count Sodium Potassium Chloride Carbon Dioxide BUN Creatinine Est GFR (Non-Af Amer) Glucose Serum , Qual Negative - Imaging EKG: image reviewed (60bpm - SINUS RHYTHM Electronically Signed On 03-10-2019 10:13:34 EDT by Gómez Quesada) Anesthesia Exam O2 Sat Height 1.55 m Height 1.55 m Weight 57.606 kg Weight 57.606 kg O2 Sat by Pulse Oximetry 100 Vital Signs Temp Pulse Resp BP Pulse Ox 97.8 F 59 18 139/84 100 05/08/19 06:54 05/08/19 06:54 05/08/19 06:54 05/08/19 06:54 05/08/19 06:54 Height: 5'1" Weight: 127# BMI = 24 NPO (# of Hours): MNOc - HEENT Pupil (Motor): Pupils equal, EOMI Mallampati: II Teeth: Edentulous (upper) Denture Type: Upper: Complete Oral Opening: Greater than 3 - RAILWAY SIGNAL TECHNICIAN LOC: Oriented RAILWAY SIGNAL TECHNICIAN Motor: Normal RUE, Normal LUE, Normal RLE, Normal LLE, Normal Face RAILWAY SIGNAL TECHNICIAN Sensory: Normal: RUE, LUE, RLE, LLE, Face - Cardiac Rhythm: Regular Murmur: None - Pulmonary Breath Sounds: bilateral Clear Respiratory Effort: Symmetrical Anesthesia Assess/Plan ASA Score: 3 (BiPolar d/o, Smoker, Asthma,) Level of consciousness: Cooperative, Oriented, Tranquil Anesthetic Plan: General Monitoring Plan: Standard Monitors Recovery Plan: PACU Anes Supervising Prov Stmt: Pt seen/evaluated, r&B discussed, questions answered and consent obtained. Kai Patino MD
[2019-05-08] MEDS ORDERED: *HR* Magnesium Sulfate 1 GM/2 ML VIAL ONE ×2 (07:20→08:45)
[2019-05-08] MEDS ORDERED: Dexmedetomidine HCl 400 MCG/100 ML MLS IVC ONE (07:20)
[2019-05-08] MEDS ORDERED: cloNIDine HCl 0.1 MG TABLET ONE (07:38)
--- NOTE | 2019-05-08 07:47 | History & Physical Report ---
Date of Encounter: 05/08/19 Time of Encounter: 07:45 24 Hour HP Update - Instructions Instructions: If the History and Physical is less than 30 days old and was completed prior to A.M. admission and or procedure and has NOT been updated on calendar day of procedure please complete this update prior to performing procedure. - Update Patient reports changes in Medical Condition: No Changes in examination, assessment, or condition: No Changes in Medication: No Preop tests/diagnostics Reviewed: Yes Surgery Remains Indicated: Yes Consent for Planned Operative Procedure(s) Verified: Yes - Pre-Operative Checklist Preoperative Checklist Indicated: Yes Prophylactic Antibiotic Ordered: Yes Home Medications Include Beta Sanam: No Beta Sanma Taken Today (Day of Surgery): No Beta Sanam Taken Yesterday (Day Prior to Surgery): No Is VTE Prophylaxis Indicated?: Yes
[2019-05-08] MEDS ORDERED: Gentamicin 260 MG in 0.9 % Sodium Chloride 100 ML IVPB ONE (07:48)
[2019-05-08] MEDS ORDERED: EPHEDrine 50 MG/ML VIAL ONE (09:13)
[2019-05-08] MEDS ORDERED: Ketorolac 30 MG/ML VIAL ONE (09:49)
[2019-05-08] MEDS ORDERED: *HR* HYDROMORPHONE 2 MG/ML VIAL ONE ×2 (09:51→10:19)
[2019-05-08] MEDS ORDERED: Neostigmine Methylsulfate 3 MG/3 ML SYRINGE ONE (10:00)
--- NOTE | 2019-05-08 11:19 | Anesthesia Evaluation Post Op ---
Date of Encounter: 05/08/19 Time of Encounter: 11:17 - Vital Signs Vital Signs: Vital Signs/O2 Sat/Glucose, Most Current Temp Pulse Resp BP Pulse Ox 05/08/19 11:06 97.6 F 52 15 96/60 93 05/08/19 10:56 61 15 103/61 95 05/08/19 10:46 53 14 99/62 100 05/08/19 10:36 97.1 F L 55 16 103/61 100 - Lungs Lungs: Clear Ascult./Percussion - Airway Airway: Non-obstructed - Cardiovascular Regular Rate, Baseline Rhythm - Mental Status Mental Status: Asleep with brisk response to light stimulation - Pain Pain Scale: 10 (non-tearful, and appears to be sleeping comfortably) Pain Scale used: Numeric (1 - 10) - Nausea Vomiting Nausea Vomiting: Not Present - Hydration Hydration: Tolerates oral liquids, Maki catheter - Discharge PostOp Status: Transfer Patient to floor Anes Supervising Prov Stmt: Pt seen/evaluated, R&B discussed, questions answered and consent obtained. Kai Patino MD
--- NOTE | 2019-05-08 11:20 | OB/GYN Procedure Note ---
[facility]: Procedure - Diagnosis Date of procedure: 05/08/19 Pre-op diagnosis: Pelvic pain, AUB, pelvic adhesive disease Post-op diagnosis: same - Procedure Procedure: DWAINE, b/l salpingecomy Surgeon: Danisha West Was there an law office assistant present: Yes Charter Driver: Ria Reddy Anesthesia Type: General Estimated blood loss (cc): 90 Fluids: crystalloid Procedure Complications: none Specimens collected: uterus, cervix and b/l tubes Disposition: floor Findings: severely adherent bladder to lower uterine segment, surgically ligated tubes with normal ovaries Narrative: After informed consent was obtained, the patient was taken to the Operating Room where general anesthesia was administered without difficulty. The patient was then placed in dorsal lithotomy position, prepped and draped in the usual sterile fashion. A pfannensteil incision was made into the abdomen down through the subcutaneous tissue and muscular fascia. The rectus muscle was then in the midline. I encountered some pelvic adhesive disease but I was able to lyse the adhesions without difficulty. The abdomen was entered easily. The uterus was then exteriorized and noted to have the findings as above. Parking sponges were placed into the abdomen. The fallopian tubes, bilaterally were clamped with the Ligasure, coagulated and transected. The round ligaments were clamped with the Ligasure, coagulated and transected. The uterovarian vessels bilaterally were isolated through a vascular window created from taking down the round ligaments. The uterovarian vessels, bilaterally were clamped, coagulated and cut with the Ligasure. Attention was then turned to the vesicouterine peritoneum where I noted severe pelvic adhesive disease connecting the bladder to the lower uterine segment. I carefully dissected off the adhesions off the uterus sharply and bluntly. The bladder was dissected off the underlying cervix bluntly down to the level of the cervix. I then skeletonized the uterine vessels on either side and carefully dissected the bladder flap again anteriorly. Posteriorly, the peritoneum was dissected down toward the uterosacral ligaments. Lupillo clamps were then placed at each isthmic portion of the cervical body junction where the uterine arteries adjoined the uterus. These were clamped, ligated and divided using #0 Vicryl suture. The remainder of the uterus was then removed by the [id number] technique using #0 Vicryl on all major pedicles. With removal of the uterus, the vaginal cuff was closed in the usual manner with 0 vicryl. Hemostasis was then inspected and secured throughout the entire area. The ovaries were left in situ. The lap sponges were then removed. The patient tolerated the operation nicely. There were no complications associated with this surgical procedure to this point. The sponge count was correct times 2 at this time. The Maki catheter was inspected and clear urine was noted. Having removed all instruments and packs, we then began closure of the abdomen. The fascia was closed with #0 vicryl in a running continuous manner and the subcutaneous tissue was also closed with #3-0 Vicryl. The skin was closed with #4-0 vicryl. The patient tolerated the operation nicely and was then taken to the Recovery Room in good condition.
[2019-05-08] MEDS ORDERED: Acetaminophen/Butalbital/CaffeineTABLET PO PRN (11:26)
[2019-05-08] MEDS ORDERED: Ketorolac 30 MG/ML VIAL IVP PRN (11:26)
[2019-05-08] MEDS ORDERED: Ondansetron 4 MG/2 ML VIAL IVP PRN (11:26)
[2019-05-08] MEDS ORDERED: Naloxone 0.4 MG/ML INJ IVP PRN (11:26)
[2019-05-08] MEDS: Gabapentin 400 MG CAPSULE PO SCH (15:56)
[2019-05-08] MEDS: Ibuprofen 600 MG TABLET PO PRN (18:51)
[2019-05-09] MEDS: Ibuprofen 600 MG TABLET PO PRN ×2 (00:26→08:09)
[2019-05-09] MEDS: Gabapentin 400 MG CAPSULE PO SCH ×2 (00:28→07:39)
--- NOTE | 2019-05-09 07:37 | Discharge Summary ---
Date of Encounter: 05/09/19 Time of Encounter: 07:36 - Discharge Diagnosis (1) Status post hysterectomy Priority: Primary Status: Acute Comments: 44 y/o s/p DWAINE, POD#1, patient is doing well, her pain is under control, ambulating, tolerating PO intake, good urine output, wants to go home today, ok for discharge - Discharge Medications Prescriptions: No Action Acetaminophen/Butalbital/Caffe [Fioricet] 1 tab PO Q4H PRN PRN Reason: Headache Buprenorphine HCl/Naloxone HCl [Buprenorphin-Naloxon 8-2 mg Sl] 1.25 tab SL DAILY hydroCHLOROthiazide [Hydrochlorothiazide] 25 mg PO DAILY Losartan Potassium [Cozaar] 50 mg PO DAILY Meclizine HCl [Verticalm] 25 mg PO DAILY PRN PRN Reason: Nausea Nabumetone [Relafen] 500 mg PO BID raNITIdine HCl [Zantac] 150 mg PO DAILY Home Medications: Acetaminophen/Butalbital/Caffe [Fioricet] 1 tab PO Q4H PRN 03/13/19 [History] Buprenorphine HCl/Naloxone HCl [Buprenorphin-Naloxon 8-2 mg Sl] 1.25 tab SL DAILY 03/13/19 [History] Losartan Potassium [Cozaar] 50 mg PO DAILY 03/13/19 [History] Meclizine HCl [Verticalm] 25 mg PO DAILY PRN 03/13/19 [History] Nabumetone [Relafen] 500 mg PO BID 03/13/19 [History] hydroCHLOROthiazide [Hydrochlorothiazide] 25 mg PO DAILY 03/13/19 [History] raNITIdine HCl [Zantac] 150 mg PO DAILY 03/13/19 [History] Allergies/Adverse Reactions: Allergy/AdvReac Type Severity Reaction Status Date / Time eletriptan [From Relpax] Allergy Difficulty Verified 05/08/19 07:29 Breathing Latex, Natural Rubber Allergy Swelling Verified 05/08/19 07:29 of Lip/Tongue/Throat Edroy Allergy EPS Verified 05/08/19 07:29 moxifloxacin Allergy Hives, Verified 05/08/19 07:29 Swelling, SOB nalbuphine [From Nubain] Allergy Swelling Verified 05/08/19 07:29 of Lip/Tongue/Throat Penicillins [PCN] Allergy Blister, Verified 05/08/19 07:29 Cough, SOB, Bleeding aspirin AdvReac See Verified 05/08/19 07:29 Comments Date of admission: 05/08/19 11:21 Primary care physician: Italia Oconnor - Patient Status Disposition: Home, Self-Care Condition: Good Functional capacity at discharge: independent ambulation Overall status at discharge: patient is progressing back to baseline - Discharge Instructions Follow Up With: Italia Oconnor, FIGURE REFINISHER AND REPAIRER [Primary Care Provider] - Hospital Course DIRECTOR OF SAFETY AND SECURITY Time Attestation: Total time spent providing and/or coordinating discharge services: Exam - Constitutional Vitals: Temp Pulse Resp BP Pulse Ox 98.2 F 65 14 148/88 100 05/09/19 04:00 05/09/19 04:00 05/09/19 04:00 05/09/19 04:00 05/09/19 04:00 General appearance IM: A&O X 3 - Respiratory Respiratory exam: Present: CTAB - Cardiovascular Cardiovascular exam IM: Present: RRR - GI/Abdominal GI/Abdominal exam IM: normal bowel sounds Incision: normal - VTE Documentation of Mechanical Device: Intermittent pneumatic compression device
[2019-05-09 08:43] VITALS: BP 150/90
[2019-05-09] MEDS ORDERED: hydroCHLOROthiazide 25 MG TABLET PO SCH (09:00)
[2019-05-09] MEDS ORDERED: Famotidine 20 MG TABLET PO SCH (09:00)
== END 2019-05-09 09:18 | disposition home or self-care (01) | DRG 513 ==
LOC: SAMDAY 06:08 → 1NENUOBS 11:21
PROVIDERS: ADMIT Student in an Organized Health Care Education/Training Program; ATTEND Student in an Organized Health Care Education/Training Program